=== PATIENT | female | born 1985 | race Caucasian/White ===

== ENCOUNTER → 2018-02-26 15:21 | Outpatient (CLI) | payer OTHER, SELFPAY ==
[2018-02-26 16:00] LABS: Basophils % 0.3 % (0.1-2.0); Eosinophils # 0.4 K/mm3 (0.0-0.4); Eosinophils % 3.5 % (0.1-12.0); Hematocrit 42.2 % (37.0-47.0); Hemoglobin 13.7 g/dL (12.2-16.2); Lymphocytes # 3.2 K/mm3 (0.7-4.5); Lymphocytes % 25.4 K/mm3 (10-50); Mean Corpuscular HGB Conc 32.4 g/dL (31.8-35.4); Mean Corpuscular Hemoglobin 28.3 pg (27.0-31.2); Mean Corpuscular Volume 87.3 fl (81-99); Mean Platelet Volume 9.5 fl (7.4-10.4); Monocytes # 0.3 K/mm3 (0.1-1.0); Monocytes % 2.6 % (1.7-9.3); Neutrophils # 8.6 K/mm3 (1.8-7.8); Neutrophils % 68.2 % (37.0-80.0); Platelet Count 218 K/mm3 (142-424); Red Blood Count 4.83 M/mm3 (4.20-5.40); White Blood Count 12.5 K/mm3 (4.8-10.8)
[2018-02-26 17:24] LABS: Alanine Aminotransferase 23 U/L (12-78); Albumin Level 3.6 gm/dL (3.4-5.0); Albumin/Globulin Ratio 0.9 (1.1-1.8); Alkaline Phosphatase 77 U/L (46-116); Aspartate Amino Transferase 15 U/L (15-37); Bilirubin,Total 0.2 mg/dL (0.2-1.0); Blood Urea Nitrogen 6 mg/dL (7-18); Calcium 9.1 mg/dL (8.5-10.1); Carbon Dioxide 27 mmol/L (21.0-32.0); Chloride 105 mmol/L (98-107); Creatinine,Serum 0.65 mg/dL (0.55-1.02); Estimated Glomerular Filt Rate 105 ml/min (>60); Free Thyroxine Index 2.7 ug/dL (5.93-13.13); GFR (African American) 127 ML/MIN (>60); Globulin 3.9 gm/dl (1.3-3.2); Glucose 94 mg/dL (74-106); Sodium 140 mmol/L (136-145); T4 (Thyroxine) 8.6 ug/dl (4.7-13.3); Thyroid Stimulating Hormone 1.59 uIU/ml (0.358-3.740); Total Protein,Serum 7.5 gm/dL (6.4-8.2); Triiodothryronine (T3) Uptake 31 % (31-39)
[2018-02-28 13:01] LABS: Prolactin 17.9 ng/mL (4.8-23.3); Triiodothyronine (T3) Free 3.3 pg/mL (2.0-4.4)
== END ==
PROVIDERS: Family Provider Nurse Practitioner Family; PCP Physician Assistant; Visit Provider Nurse Practitioner Obstetrics & Gynecology
DX: N92.0 Excessive and frequent menstruation with regular cycle (principal); N92.6 Irregular menstruation, unspecified
CPT/HCPCS: 36415; 80053; 84146; 84436; 84443; 84479; 84481; 85025

== ENCOUNTER → 2018-03-04 08:58 | Outpatient (CLI) | payer OTHER, SELFPAY ==
--- NOTE | 2018-03-04 09:02 | US_ITS ---
US transvaginal HISTORY: ITS.REASON: Heavy Bleeding, irregular cycles, right-sided pain ORDERING PHYSICIAN: Barrie Darling MD PATIENT AGE: 32 years Comparison: None FINDINGS: The uterus measures 9 x 5 x 7 cm with a combined endometrial thickness of 9 mm. scar noted anteriorly and inferiorly. No uterine mass. The left ovary is 2.5 x 2.4 cm. The right ovary is 3.5 x 3.6 cm contains small follicles. No dominant cyst or cul-de-sac fluid is evident. IMPRESSION: Unremarkable pelvic ultrasound
== END ==
PROVIDERS: Family Provider Nurse Practitioner Family; PCP Physician Assistant; Visit Provider Nurse Practitioner Obstetrics & Gynecology
DX: N93.9 Abnormal uterine and vaginal bleeding, unspecified (principal)
CPT/HCPCS: 76830

== ENCOUNTER 2018-06-03 14:32 | Inpatient (IN) ==
[2018-06-03 15:23] LABS: Basophils % 0.3 % (0.1-2.0); Eosinophils # 0.4 K/mm3 (0.0-0.4); Eosinophils % 3.2 % (0.1-12.0); Hematocrit 44.3 % (37.0-47.0); Hemoglobin 14.4 g/dL (12.2-16.2); Lymphocytes % 25.6 K/mm3 (10-50); Mean Corpuscular HGB Conc 32.5 g/dL (31.8-35.4); Mean Corpuscular Hemoglobin 28.2 pg (27.0-31.2); Mean Corpuscular Volume 86.6 fl (81-99); Mean Platelet Volume 9.3 fl (7.4-10.4); Monocytes # 0.5 K/mm3 (0.1-1.0); Monocytes % 3.8 % (1.7-9.3); Neutrophils # 7.9 K/mm3 (1.8-7.8); Neutrophils % 67.1 % (37.0-80.0); Platelet Count 219 K/mm3 (142-424); Red Blood Count 5.11 M/mm3 (4.20-5.40); Red Cell Distribution Width 15.3 % (11.5-17.5); White Blood Count 11.8 K/mm3 (4.8-10.8)
--- NOTE | 2018-06-03 15:26 | Emergency Department Note ---
ED Disposition Clinical Impression: Abdominal wall cellulitis, Hx MRSA infection Disposition: Home, Self-Care Condition on Discharge: Fair Referrals: Roberta Rocha PA [Primary Care Provider] - - Critical Care Critical Care Time: No Attestation: On 06/03/18, the high probability of a clinically significant, sudden or life threatening deterioration of the following system(s) required my full and direct attention, intervention and personal management. The time I documented below is in addition to time spent performing reported procedures but includes the following listed in this critical care notation. Medical Decision Making - Aurelio Inquiry Pt receiving controlled substance: No Aurelio was queried for this patient: No Vital Signs: 06/03/18 14:33 06/03/18 14:37 06/03/18 15:03 Temperature 98.7 F Temperature Source Oral Pulse Rate [Right Brachial] 102 H 104 H 101 H Respiratory Rate 20 Blood Pressure [Right Arm] 140/82 143/89 138/82 Blood Pressure Mean [Right Arm] 101 107 100 Blood Pressure Source [Right Arm] Manual Cuff/ Doppler Automatic Cuff Automatic Cuff Blood Pressure Position [Right Arm] Sitting Sitting Sitting 02 Sat by Pulse Oximetry 98 99 99 Oxygen Delivery Method Room Air 06/03/18 15:33 06/03/18 16:20 Temperature Temperature Source Pulse Rate [Right Brachial] 103 H 96 H Respiratory Rate Blood Pressure [Right Arm] 139/78 130/69 Blood Pressure Mean [Right Arm] 98 89 Blood Pressure Source [Right Arm] Automatic Cuff Manual Cuff/ Doppler Blood Pressure Position [Right Arm] Sitting Sitting 02 Sat by Pulse Oximetry 97 98 Oxygen Delivery Method - Lab Data Lab Results 06/03/18 15:06: WBC 11.8 H, RBC 5.11, Hgb 14.4, Hct 44.3, MCV 86.6, MCH 28.2, MCHC 32.5, RDW 15.3, Plt Count 219, MPV 9.3, Neut % (Auto) 67.1, Lymph % (Auto) 25.6, [place] % (Auto) 3.8, Eos % (Auto) 3.2, Baso % (Auto) 0.3, Neut # (Auto) 7.9 H, Lymph # (Auto) 3.0, [place] # (Auto) 0.5, Eos # (Auto) 0.4, Baso # (Auto) 0.0 06/03/18 15:06: Sodium 138, Potassium 3.6, Chloride 103, Carbon Dioxide 28, Anion Gap 10.6, BUN 9, Creatinine 0.92, Estimated Creat Clear 66, Estimated GFR 70, Est GFR ( Amer) 85, Glucose 115 H, Calcium 8.6 06/03/18 15:06: Lactate 0.9 Result diagrams: 06/03/18 15:06 06/03/18 15:06 Orders (Tests/Meds): ED MEDICATIONS Generic Name Dose Route Start Last Admin Trade Name Freq PRN Reason Stop Dose Admin Sodium Chloride 1,000 mls @ 999 mls/hr 06/03/18 15:30 06/03/18 15:36 Sod Chlor 0.9% 1000ml Bag IV 06/03/18 16:30 999 mls/hr .Q1H1M JAMES Administration Clindamycin Phosphate 900 mg/ 106 mls @ 100 mls/hr 06/03/18 15:30 06/03/18 15 :36 Sodium Chloride IV 06/17/18 15:29 100 mls/hr Q8H JAMES Administration Protocol Discontinued Medications Generic Name Dose Route Start Last Admin Trade Name Freq PRN Reason Stop Dose Admin Ketorolac Tromethamine 30 mg 06/03/18 15:21 06/03/18 15:36 Toradol 30mg/Ml Vial IV 06/03/18 15:22 30 mg ONCE ONE Administration ORDERS Category Date Time Status Blood Culture Stat Micro 06/03/18 15:06 Received Wound Culture and Gram Stain Stat Micro 06/03/18 15:25 Received Medical Decision Narrative: Patient was given Toradol started her on IV clindamycin. [address] Figu[address]a [phone] Dr[address] Kapoor accepted the patient for admission requested that the patient start vancomycin. Skin/Abscess/FB HPI - General Chief complaint: Skin/Abscess/Foreign Body Stated complaint: spider bite Time Seen by Provider: 06/03/18 15:00 Mode of Arrival: Family Vehicle Limitations: No Limitations Description of Symptoms (Recalled from ER Triage Doc. by RN): C/O SPIDER BITE ( SMALL BROWN SPIDER) TO RIGHT SIDE OF ABDOMEN 05/26/18 AND GETTING WORSE. HAS APPT WITH DR FIGUEROA ON 06/06/18 - History of Present Illness HPI narrative: 32 years old white female with history of MRSA infection. 8 days ago she was bitten by spider with a result of skin infection, she was seen by her primary care physician started on Bactrim and later on added Cipro with no improvement. Continues to have chills pain and worsening of her cellulitis. She contacted her primary care physician who directed her to the ER for admission and surgical consultation. MD complaint: rash Onset (ago): day(s) (8 days.) Tetanus up to date: unsure Severity: mild Severity scale (1-10): 8 Quality: sharp Consistency: constant Relieving factors: none Exacerbating factors: other (squeezing it. ) Context: none Associated symptoms: denies other symptoms, chills, other (skin rash. ) Treatments prior to arrival: none - Related Data Home Medications Medication Instructions Recorded Confirmed Acetaminophen with Codeine 1 tab PO Q6H PRN 06/03/18 06/03/18 [Tylenol with Codeine #3 tablet] Ciprofloxacin HCl [Ciprofloxacin 500 mg PO BID 06/03/18 06/03/18 500mg Tab] Mupirocin [Centany] 1 applic TOPICAL BID 06/03/18 06/03/18 Sulfamethoxazole/Trimethoprim 1 each PO BID 06/03/18 06/03/18 [Bactrim DS tablet] predniSONE [Deltasone 20mg 20 mg PO BID 06/03/18 06/03/18 tablet] Allergies Allergy/AdvReac Type Severity Reaction Status Date / Time amoxicillin [From AUGMENTIN] Allergy Mild Verified 05/30/18 14:30 ceftriaxone [From Rocephin] Allergy Mild Verified 05/30/18 15:43 clavulanic acid Allergy Mild Verified 05/30/18 14:30 [From AUGMENTIN] tramadol [TRAMADOL] Allergy Mild Verified 05/30/18 14:30 [facility] History I have reviewed the patient's past medical history: Yes Medical History: Reports:: Asthma, Migraine, MRSA Denies:: Cancer, Diabetes Mellitus Type 1, Diabetes Mellitus Type 2, Internal Pacemaker, Seizures Other Medical History: Reports: Other. Denies: Blood Transfusion Reaction Other Surgeries: Yes: . No: Pacemaker Amputation: No Fractures: No - Social History Smoking Status: Current every day smoker Tobacco Type: cigarettes Alcohol Intake: never Substance Use Type: denies use Occupational Status: employed Household Members: family - Psychiatric History Expresses thoughts of harming self/others: None Suicide Plan Description: No Plan Family Hx:: Diabetes, Cancer, Hypertension Comment: arthritis ROS Obtained: Yes All systems reviewed & no additional complaints Physical Exam - General General appearance: alert, in no apparent distress - Head Head exam: atraumatic, normocephalic, normal inspection - Eye Eye exam: Present: normal appearance, PERRL, EOMI - ENT ENT exam: Present: normal exam, normal oropharynx, mucous membranes moist, TM's normal bilaterally, normal external ear exam - Neck Neck exam: Present: normal inspection, full ROM, trachea midline. Absent: meningismus, lymphadenopathy - Chest Chest inspection: Present: normal inspection, symmetric chest wall rise. Absent : tenderness - Respiratory Respiratory exam: Present: normal lung sounds bilaterally. Absent: respiratory distress - Cardiovascular Cardiovascular exam: Present: regular rate, normal rhythm, normal heart sounds. Absent: JVD - Abdominal Exam Abdominal exam: Present: soft, tenderness, normal bowel sounds, other. Absent: distention, guarding, rebound, rigidity, Garcia's sign, tenderness at McBurney' s Point Comment: Obese soft abdomen inch black boil with a dusky reddish discharge from the center surrounded by 5 inches of erythema on the right side of the abdomen. There is no tenderness to deep palpation there is no focal tenderness no cross tenderness no rebound tenderness no guarding no rigidity. There is no inguinal lymph nodes palpated. - External exam: Present: normal external exam - Extremities Exam Extremities exam: Present: normal inspection, full ROM, normal capillary refill. Absent: calf tenderness - Back Exam Back exam: Present: normal inspection. Absent: tenderness, CVA tenderness (R), CVA tenderness (L) - Neurological Exam Neurological exam: Present: alert, oriented X3, CN II-XII intact, motor sensory deficit, reflexes normal - Psychiatric Psychiatric exam: Present: normal affect, normal mood - Skin Skin exam: Present: other (See abdominal examination. ) - Lymphatic Lymphatic Findings: no adenopathy
[2018-06-03 15:34] LABS: Anion Gap 10.6 mEq/L (5-15); Calcium 8.6 mg/dL (8.5-10.1); Potassium 3.6 mmoL/L (3.5-5.1)
--- NOTE | 2018-06-03 19:20 | Consult Report ---
*Admission Date: 06/03/18 *Chief complaint: BOIL ON ABDOMEN *History of present illness: Patient is a 32-year-old diabetic female from [place]. She states that she has had numerous boils in the past and she has been "put to sleep" for incision and drainage approximately 10 times in the past for these. She states that last Saturday on 05/26/18 she was bitten by a spider on the right lower abdomen. She states that she witnessed the spider. She had presented to her primary care provider's office several days later due to increasing pain and redness. She was given steroids and antibiotic prescription. Apparently the patient did not fill the prescription. She presented back to the urgent treatment center on 06/01/18. She was given a prescription for antibiotics and arrangements were made for outpatient surgical evaluation. She presented back to the emergency department this afternoon after contacting her primary care provider's office due to increasing pain and progressive redness. She had developed some drainage yesterday. She was admitted for inpatient management for intravenous antibiotics and surgical consultation for incision and drainage. Review of Systems - Review of Systems Review of systems:: pertinent systems reviewed and negative unless documented below [facility] History Medical History: Reports:: Asthma, Migraine, MRSA Denies:: Cancer, Diabetes Mellitus Type 1, Diabetes Mellitus Type 2, Internal Pacemaker, Seizures Other Medical History: Reports: Other. Denies: Blood Transfusion Reaction Other Surgeries: Yes: Cholecystectomy, . No: Pacemaker Amputation: No Fractures: No - *Social History Smoking Status: Current every day smoker Tobacco Type: cigarettes # Packs/Day (cigarettes): 1 Alcohol Intake: never Substance Use Type: denies use Occupational Status: employed Household Members: family - Psychiatric History Expresses thoughts of harming self/others: None Suicide Plan Description: No Plan *Family Hx:: Diabetes, Cancer, Hypertension Meds Home Medications Medication Instructions Recorded Confirmed Type Acetaminophen with Codeine 1 tab PO Q6H PRN 06/03/18 06/03/18 History [Tylenol with Codeine #3 tablet] Ciprofloxacin HCl [Ciprofloxacin 500 mg PO BID 06/03/18 06/03/18 History 500mg Tab] Mupirocin [Centany] 1 applic TOPICAL BID 06/03/18 06/03/18 History Sulfamethoxazole/Trimethoprim 1 each PO BID 08/21/18 08/21/18 History [Bactrim DS tablet] predniSONE [Deltasone 20mg 20 mg PO BID 06/03/18 06/03/18 History tablet] Allergies Allergy/AdvReac Type Severity Reaction Status Date / Time amoxicillin [From AUGMENTIN] Allergy Mild Verified 06/03/18 17:37 ceftriaxone [From Rocephin] Allergy Mild Verified 06/03/18 17:37 clavulanic acid Allergy Mild Verified 06/03/18 17:37 [From AUGMENTIN] tramadol [TRAMADOL] Allergy Mild Verified 06/03/18 17:37 Exam Vital signs and Labs for Last 24 Hours: Temp Pulse Resp BP Pulse Ox 97.4 F L 83 18 109/74 100 06/03/18 18:06 06/03/18 18:06 06/03/18 18:06 06/03/18 18:06 06/03/18 18:06 Laboratory Results - last 24 hr 06/03/18 15:06: WBC 11.8 H, RBC 5.11, Hgb 14.4, Hct 44.3, MCV 86.6, MCH 28.2, MCHC 32.5, RDW 15.3, Plt Count 219, MPV 9.3, Neut % (Auto) 67.1, Lymph % (Auto) 25.6, [place] % (Auto) 3.8, Eos % (Auto) 3.2, Baso % (Auto) 0.3, Neut # (Auto) 7.9 H, Lymph # (Auto) 3.0, [place] # (Auto) 0.5, Eos # (Auto) 0.4, Baso # (Auto) 0.0 06/03/18 15:06: Sodium 138, Potassium 3.6, Chloride 103, Carbon Dioxide 28, Anion Gap 10.6, BUN 9, Creatinine 0.92, Estimated Creat Clear 66, Estimated GFR 70, Est GFR ( Amer) 85, Glucose 115 H, Calcium 8.6 06/03/18 15:06: Lactate 0.9 I & O for Last 24 hours: Intake & Output 06/01/18 06/02/18 06/03/18 06/04/18 11:59 11:59 11:59 11:59 Weight 255 lb 2 oz Microbiology Reports for the Last 24 Hours: Microbiology 06/03/18 15:25 Abdomen Gram Stain - Final - Constitutional no acute distress, obese - *Routine HEENT Exam Head: Present: normocephalic - *Routine Respiratory Exam Present: CTA bilaterally - *Routine Cardiovascular Exam Present: RRR - *Routine Abdominal Exam Present: soft - *Routine Skin Exam Comments: On the right lower abdomen she has blanching erythema consistent with cellulitis. More centrally there is an and tenderness. Central platelets there is approximately a 3-4 area of fluctuance with some necrosis and purulent foul-smelling drainage. Results - Labs 06/03/18 15:06 06/03/18 15:06 Laboratory Results - last 24 hr 06/03/18 15:06: WBC 11.8 H, RBC 5.11, Hgb 14.4, Hct 44.3, MCV 86.6, MCH 28.2, MCHC 32.5, RDW 15.3, Plt Count 219, MPV 9.3, Neut % (Auto) 67.1, Lymph % (Auto) 25.6, [place] % (Auto) 3.8, Eos % (Auto) 3.2, Baso % (Auto) 0.3, Neut # (Auto) 7.9 H, Lymph # (Auto) 3.0, [place] # (Auto) 0.5, Eos # (Auto) 0.4, Baso # (Auto) 0.0 06/03/18 15:06: Sodium 138, Potassium 3.6, Chloride 103, Carbon Dioxide 28, Anion Gap 10.6, BUN 9, Creatinine 0.92, Estimated Creat Clear 66, Estimated GFR 70, Est GFR ( Amer) 85, Glucose 115 H, Calcium 8.6 06/03/18 15:06: Lactate 0.9 Assessment and Plan - Assessment and plan all Dx Assessment and Plan for all problems:: Plan will be for incision and drainage and debridement of necrotic tissues tomorrow morning under anesthesia in the operating room
[2018-06-04 06:19] LABS: Basophils % 0.3 % (0.1-2.0); Eosinophils # 0.5 K/mm3 (0.0-0.4); Eosinophils % 5.3 % (0.1-12.0); Hematocrit 39.5 % (37.0-47.0); Lymphocytes # 3.9 K/mm3 (0.7-4.5); Lymphocytes % 41.4 K/mm3 (10-50); Mean Corpuscular HGB Conc 32.9 g/dL (31.8-35.4); Mean Corpuscular Hemoglobin 28.4 pg (27.0-31.2); Mean Corpuscular Volume 86.5 fl (81-99); Mean Platelet Volume 10.3 fl (7.4-10.4); Monocytes # 0.4 K/mm3 (0.1-1.0); Monocytes % 4.5 % (1.7-9.3); Neutrophils # 4.6 K/mm3 (1.8-7.8); Neutrophils % 48.5 % (37.0-80.0); Platelet Count 190 K/mm3 (142-424); Red Blood Count 4.56 M/mm3 (4.20-5.40); Red Cell Distribution Width 15.3 % (11.5-17.5); White Blood Count 9.5 K/mm3 (4.8-10.8)
[2018-06-04 06:47] LABS: Anion Gap 13.4 mEq/L (5-15)
[2018-06-04 07:01] LABS: Calcium 8.2 mg/dL (8.5-10.1); Potassium 4.4 mmoL/L (3.5-5.1)
--- NOTE | 2018-06-04 07:19 | Pharmacy Consult Notes ---
[facility] Pharmacy VTE Monitoring - Patient Demographics Admission date: 06/04/18 Report Date: 06/04/18 Time: 07:19 Allergies/Adverse Reactions: Patient Allergies amoxicillin [From AUGMENTIN] Allergy (Mild, Verified 06/03/18 17:37) ceftriaxone [From Rocephin] Allergy (Mild, Verified 06/03/18 17:37) clavulanic acid [From AUGMENTIN] Allergy (Mild, Verified 06/03/18 17:37) tramadol [TRAMADOL] Allergy (Mild, Verified 06/03/18 17:37) Height: 1.63 m Weight: 115.723 kg Patient Problems: Current Active Problems Abdominal wall cellulitis (Acute) Hx MRSA infection (Acute) - VTE Risk Labs: VTE Related Lab Results Hgb 13.0 g/dL (12.2-16.2) 06/04/18 05:35 Hct 39.5 % (37.0-47.0) 06/04/18 05:35 Plt Count 190 K/mm3 (142-424) 06/04/18 05:35 BUN 10 mg/dL (7-18) 06/04/18 05:35 Creatinine 0.78 mg/dL (0.55-1.02) 06/04/18 05:35 Estimated Creat Clear 89 mL/min (0-300) 06/04/18 05:35 Clinical Trial Participant: No - Prophylaxis VTE Prophylaxis Ordered?: Yes Types of VTE Prophylaxis: TEDS Knee High Location of Applied Device: Refused
--- NOTE | 2018-06-04 08:35 | History & Physical Report ---
*Admission Date: 06/04/18 *History of present illness: Patient is a 32-year-old diabetic female from [place]. She states that she has had numerous boils in the past and she has been "put to sleep" for incision and drainage approximately 10 times in the past for these. She states that last Saturday on 05/26/18 she was bitten by a spider on the right lower abdomen. She states that she witnessed the spider. She had presented to her primary care provider's office several days later due to increasing pain and redness. She was given steroids and antibiotic prescription. Apparently the patient did not fill the prescription. She presented back to the urgent treatment center on 06/01/18. She was given a prescription for antibiotics and arrangements were made for outpatient surgical evaluation. She presented back to the emergency department this afternoon after contacting her primary care provider's office due to increasing pain and progressive redness. She had developed some drainage yesterday. She was admitted for inpatient management for intravenous antibiotics and surgical consultation for incision and drainage. [facility] History I have reviewed the patient's past medical history: Yes Medical History: Reports:: Asthma, Migraine, MRSA Denies:: Cancer, Diabetes Mellitus Type 1, Diabetes Mellitus Type 2, Internal Pacemaker, Seizures Other Medical History: Reports: Other. Denies: Blood Transfusion Reaction Other Surgeries: Yes: Cholecystectomy, . No: Pacemaker Amputation: No Fractures: No - *Social History Smoking Status: Current every day smoker Tobacco Type: cigarettes # Packs/Day (cigarettes): 1 Alcohol Intake: never Substance Use Type: denies use Occupational Status: employed Household Members: family - Psychiatric History Expresses thoughts of harming self/others: None Suicide Plan Description: No Plan *Family Hx:: Diabetes, Cancer, Hypertension Review of Systems - Review of Systems Review of systems:: pertinent systems reviewed and negative unless documented below - Constitutional Reports chills, Reports fever(s) - Eyes Denies change in vision - ENT Denies change in voice, Denies sore throat - *Cardiovascular Denies chest pain with activity, Denies shortness of breath - *Respiratory Denies chest congestion - *Gastrointestinal Denies change in bowel habits, Denies nausea, Denies vomiting - *Genitourinary Denies other - *Musculoskeletal Denies decreased muscle mass - Integumentary/Breasts Reports wounds - *Neurologic Denies abnormal hearing, Denies restless legs - Psychiatric Denies anxiety - Endocrine Denies flushing - Hematologic/Lymphatic Denies enlarged lymph nodes - Allergic/Immunologic Denies lip swelling Meds Home Medications Medication Instructions Recorded Confirmed Type Acetaminophen with Codeine 1 tab PO Q6H PRN 06/03/18 06/03/18 History [Tylenol with Codeine #3 tablet] Ciprofloxacin HCl [Ciprofloxacin 500 mg PO BID 06/03/18 06/03/18 History 500mg Tab] Mupirocin [Centany] 1 applic TOPICAL BID 06/03/18 06/03/18 History Sulfamethoxazole/Trimethoprim 1 each PO BID 06/03/18 06/03/18 History [Bactrim DS tablet] Allergies Allergy/AdvReac Type Severity Reaction Status Date / Time amoxicillin [From AUGMENTIN] Allergy Mild Verified 06/03/18 17:37 ceftriaxone [From Rocephin] Allergy Mild Verified 06/03/18 17:37 clavulanic acid Allergy Mild Verified 06/03/18 17:37 [From AUGMENTIN] tramadol [TRAMADOL] Allergy Mild Verified 06/03/18 17:37 Exam Vital signs and Labs for Last 24 Hours: Temp Pulse Resp BP Pulse Ox 97.9 F 54 L 18 98/71 99 06/04/18 07:21 06/04/18 07:21 06/04/18 07:21 06/04/18 07:21 06/04/18 07:21 Laboratory Results - last 24 hr 06/03/18 15:06: WBC 11.8 H, RBC 5.11, Hgb 14.4, Hct 44.3, MCV 86.6, MCH 28.2, MCHC 32.5, RDW 15.3, Plt Count 219, MPV 9.3, Neut % (Auto) 67.1, Lymph % (Auto) 25.6, [place] % (Auto) 3.8, Eos % (Auto) 3.2, Baso % (Auto) 0.3, Neut # (Auto) 7.9 H, Lymph # (Auto) 3.0, [place] # (Auto) 0.5, Eos # (Auto) 0.4, Baso # (Auto) 0.0 06/03/18 15:06: Sodium 138, Potassium 3.6, Chloride 103, Carbon Dioxide 28, Anion Gap 10.6, BUN 9, Creatinine 0.92, Estimated Creat Clear 66, Estimated GFR 70, Est GFR ( Amer) 85, Glucose 115 H, Calcium 8.6 06/03/18 15:06: Lactate 0.9 06/04/18 05:35: WBC 9.5, RBC 4.56, Hgb 13.0, Hct 39.5, MCV 86.5, MCH 28.4, MCHC 32.9, RDW 15.3, Plt Count 190, MPV 10.3, Neut % (Auto) 48.5, Lymph % (Auto) 41.4 , [place] % (Auto) 4.5, Eos % (Auto) 5.3, Baso % (Auto) 0.3, Neut # (Auto) 4.6, Lymph # (Auto) 3.9, [place] # (Auto) 0.4, Eos # (Auto) 0.5 H, Baso # (Auto) 0.0 06/04/18 05:35: Sodium 138, Potassium 4.4 D, Chloride 107, Carbon Dioxide 22 D , Anion Gap 13.4, BUN 10, Creatinine 0.78, Estimated Creat Clear 89, Estimated GFR 85, Est GFR ( Amer) 103 D, Glucose 84 D, Calcium 8.2 L I & O for Last 24 hours: Intake & Output 06/01/18 06/02/18 06/03/18 06/04/18 11:59 11:59 11:59 11:59 Weight 255 lb 2 oz Microbiology Reports for the Last 24 Hours: Microbiology 06/03/18 15:25 Abdomen Gram Stain - Final - Constitutional no acute distress - *Routine HEENT Exam Head: Present: normocephalic Eye: Present: PERRL ENT: Present: mucous membranes moist - *Routine Neck Exam Present: full ROM - *Routine Respiratory Exam Present: CTA bilaterally - *Routine Cardiovascular Exam Present: RRR - *Routine Abdominal Exam Present: wound - *Routine Extremities Exam Present: full ROM - *Routine Skin Exam Present: wounds - *Routine Neurological Exam Present: alert, oriented X3 - Routine Psychiatric Exam Present: normal affect, normal thought process - Detailed Skin Exam right abdomen Type of lesion/wound: Present: abscess Body image: 1 - induration the size of golf ball, yellow/green pus present, redness the size of a solfball Assessment and Plan - Assessment and plan all Dx Assessment and Plan for all problems:: rounded with gonzález, all orders per gonzález surgery today.
--- NOTE | 2018-06-04 10:13 | Pharmacy Consult Notes ---
- Pharmacy Consult Date: 06/04/18 Time: 10:12 Referring provider: DR. RONDON Reason for Consult:: VANCOMYCIN DOSING Allergies and ADEs:: Allergies Allergy/AdvReac Type Severity Reaction Status Date / Time amoxicillin [From AUGMENTIN] Allergy Mild Verified 06/03/18 17:37 ceftriaxone [From Rocephin] Allergy Mild Verified 06/03/18 17:37 clavulanic acid Allergy Mild Verified 06/03/18 17:37 [From AUGMENTIN] tramadol [TRAMADOL] Allergy Mild Verified 06/03/18 17:37 Home Medications:: Home Medications Medication Instructions Recorded Confirmed Type Acetaminophen with Codeine 1 tab PO Q6H PRN 06/03/18 06/03/18 History [Tylenol with Codeine #3 tablet] Ciprofloxacin HCl [Ciprofloxacin 500 mg PO BID 06/03/18 06/03/18 History 500mg Tab] Mupirocin [Centany] 1 applic TOPICAL BID 06/03/18 06/03/18 History Sulfamethoxazole/Trimethoprim 1 each PO BID 06/03/18 06/03/18 History [Bactrim DS tablet] Height: 1.63 m Weight: 115.723 kg Laboratory Results:: Laboratory Results - last 24 hr 06/03/18 15:06: WBC 11.8 H, RBC 5.11, Hgb 14.4, Hct 44.3, MCV 86.6, MCH 28.2, MCHC 32.5, RDW 15.3, Plt Count 219, MPV 9.3, Neut % (Auto) 67.1, Lymph % (Auto) 25.6, [place] % (Auto) 3.8, Eos % (Auto) 3.2, Baso % (Auto) 0.3, Neut # (Auto) 7.9 H, Lymph # (Auto) 3.0, [place] # (Auto) 0.5, Eos # (Auto) 0.4, Baso # (Auto) 0.0 06/03/18 15:06: Sodium 138, Potassium 3.6, Chloride 103, Carbon Dioxide 28, Anion Gap 10.6, BUN 9, Creatinine 0.92, Estimated Creat Clear 66, Estimated GFR 70, Est GFR ( Amer) 85, Glucose 115 H, Calcium 8.6 06/03/18 15:06: Lactate 0.9 06/04/18 05:35: WBC 9.5, RBC 4.56, Hgb 13.0, Hct 39.5, MCV 86.5, MCH 28.4, MCHC 32.9, RDW 15.3, Plt Count 190, MPV 10.3, Neut % (Auto) 48.5, Lymph % (Auto) 41.4 , [place] % (Auto) 4.5, Eos % (Auto) 5.3, Baso % (Auto) 0.3, Neut # (Auto) 4.6, Lymph # (Auto) 3.9, [place] # (Auto) 0.4, Eos # (Auto) 0.5 H, Baso # (Auto) 0.0 06/04/18 05:35: Sodium 138, Potassium 4.4 D, Chloride 107, Carbon Dioxide 22 D , Anion Gap 13.4, BUN 10, Creatinine 0.78, Estimated Creat Clear 89, Estimated GFR 85, Est GFR ( Amer) 103 D, Glucose 84 D, Calcium 8.2 L Medical History: Reports:: Asthma, Migraine, MRSA Denies:: Cancer, Diabetes Mellitus Type 1, Diabetes Mellitus Type 2, Internal Pacemaker, Seizures Assessment and Plan - Assessment and plan all Dx Assessment and Plan for all problems:: BASED ON PATIENT FACTORS, RECOMMEND VANCOMYCIN 2 GM IV Q12H. WILL OBTAIN VANCOMYCIN TROUGH LEVEL PRIOR TO 4TH DOSE TOMORROW MORNING. PHARMACY WILL FOLLOW DAILY AND ADJUST APPROPRIATE.
--- NOTE | 2018-06-04 13:12 | Progress Note ---
[facility] Anesthesia Checklist - Patient Identification Patient Identification: Arm Band, Verbal (Name & ) - Structural Data Admitted From: Inpatient Planned Operative Procedure/s: I&D, debridement of abdominal wall Consent for Planned Operative Procedure(s) Verified: Yes Verified Documents: Surgical Consent, History and Physical - NPO Status Verified Time NPO: 00:00 - Additional verifications Patient : No Anesthesia Reactions: No - Airway Assessment C-Spine Mobility Assessed: Yes TMJ Mobility Assessed: Yes Dentition: Poor Dentition - Neurological Assessment Level of Consciousness: Awake Hx Seizures: No Numbness or tingling in extremities: No - Anesthesia Plan Anesthesia Risk discussed: Yes Anesthesia Plan: Verified ASA Class: III Anesthesia Type: General [facility] Anesthesia HX I have reviewed the patient's past medical history: Yes Medical History: Reports:: Asthma, Migraine, MRSA Denies:: Cancer, Diabetes Mellitus Type 1, Diabetes Mellitus Type 2, Internal Pacemaker, Seizures Other Medical History: Reports: Other (Morbid obesity, smokes tobacco). Denies : Blood Transfusion Reaction Other Surgeries: Yes: Cholecystectomy, , Other (abscess x10, uterine ablation). No: Pacemaker Amputation: No Fractures: No *Family Hx:: Diabetes, Cancer, Hypertension
--- NOTE | 2018-06-04 14:14 | Operative Note ---
Date of procedure: 06/04/18 Pre-op Diagnosis:: Abdominal wall abscess and focal necrotizing infection Post-op Diagnosis:: Same Procedure performed:: Incision and drainage of abdominal wall abscess with debridement of skin and subcutaneous tissues Surgeon:: Dada Garcia MD Anesthesia: LMA Estimated blood loss (mL): 15 Clinical Note:: Patient is a 32-year-old diabetic female from [place]. She states that she has had numerous boils in the past and she has been "put to sleep" for incision and drainage approximately 10 times in the past for these. She states that last Saturday on 05/26/18 she was bitten by a spider on the right lower abdomen. She states that she witnessed the spider. She had presented to her primary care provider's office several days later due to increasing pain and redness. She was given steroids and antibiotic prescription. Apparently the patient did not fill the prescription. She presented back to the urgent treatment center on 06/01/18. She was given a prescription for antibiotics and arrangements were made for outpatient surgical evaluation. She presented back to the emergency department this afternoon after contacting her primary care provider's office due to increasing pain and progressive redness. She had developed some drainage yesterday. She was admitted for inpatient management for intravenous antibiotics and surgical consultation for incision and drainage. Operative findings:: Had focal superficial necrosis of the skin with minimal infected subcutaneous tissue. There is purulent caseous is drainage from the wound. Operative note:: Consent was obtained and patient was taken to the operating room. She was positioned in a supine position. General anesthesia was induced via LMA. Area was prepped and draped in the standard surgical fashion. Open draining wound was probed with a hemostat. There was some caseous purulent material which exuded from the wound. This was sent for cultures. Wound was probed. The superficial necrotic tissues were incised using electrocautery in a circular fashion and underlying subcutaneous tissues were excised with electrocautery to relatively healthy appearing subcutaneous tissue. Wound was vigorously probed and there were no loculations noted. Wound was thoroughly irrigated. Hemostasis was achieved with electrocautery. Local anesthetic was infiltrated. Overall size of the wound measured only approximately 3 cm in diameter and 2/ 3 cm in depth. There was however extensive cellulitis beyond this. Condition: stable Disposition: PACU Specimens:: Debrided tissue Complications:: None immediately apparent
--- NOTE | 2018-06-04 14:23 | Progress Note ---
[facility] Anesthesia Record Part I Intake, IV Amount: 600 Estimated blood loss (mL): 10 Urine output (mL): 0 Blood Products used (#): none Blood Pressure: 120/75 SaO2: 99 Pulse Rate: 55 Respiratory Rate: 14 Temperature: 97.0 F Patient is:: Awake, Stable Stable to PACU at:: 14:15
--- NOTE | 2018-06-04 14:24 | Progress Note ---
[facility] Anesthesia Record Part II Discharge Time: 14:45 Destination: Medical Surgical Department PACU nurse assessment reviewed?: Yes Patient Condition:: Good Anesthesia Complications:: None
--- NOTE | 2018-06-05 08:23 | Progress Note ---
Subjective Patient reports: still having pain Exam Vital signs and Labs for Last 24 Hours: Temp Pulse Resp BP Pulse Ox 98.0 F 53 L 18 121/79 100 06/05/18 07:00 06/05/18 07:00 06/05/18 07:00 06/05/18 07:00 06/05/18 07:00 I & O for Last 24 hours: Intake & Output 06/02/18 06/03/18 06/04/18 06/05/18 11:59 11:59 11:59 11:59 Intake Total 3289 / 3289 Output Total 0 / 0 Balance 3289 / 3289 Weight 255 lb 2 oz 255 lb 2.008 oz Microbiology Reports for the Last 24 Hours: Microbiology 06/03/18 15:25 Abdomen Gram Stain - Final 06/03/18 15:25 Abdomen Wound Culture - Preliminary Staphylococcus aureus 06/04/18 Unknown Abdomen Gram Stain - Final - *Routine Skin Exam Comments: Still with significant cellulitis. Wound clean. Progress Note: A&P Assessment and Plan for All Diagnoses:: Initiate dressing changes. Continue IV antibiotics for now due to cellulitis. Culture reveals MRSA.
--- NOTE | 2018-06-05 09:02 | Progress Note ---
Internal Medicine - PN: Subj *Date: 06/05/18 *Time: 08:55 Exam Vital signs and Labs for Last 24 Hours: Temp Pulse Resp BP Pulse Ox 98.0 F 53 L 18 121/79 100 06/05/18 07:00 06/05/18 07:00 06/05/18 07:00 06/05/18 07:00 06/05/18 07:00 I & O for Last 24 hours: Intake & Output 06/02/18 06/03/18 06/04/18 06/05/18 11:59 11:59 11:59 11:59 Intake Total 3289 / 3289 Output Total 0 / 0 Balance 3289 / 3289 Weight 255 lb 2 oz 255 lb 2.008 oz Microbiology Reports for the Last 24 Hours: Microbiology 06/03/18 15:25 Abdomen Gram Stain - Final 06/03/18 15:25 Abdomen Wound Culture - Preliminary Staphylococcus aureus 06/04/18 Unknown Abdomen Gram Stain - Final - Constitutional no acute distress - *Routine HEENT Exam Head: Present: normocephalic Eye: Present: PERRL ENT: Present: mucous membranes moist - *Routine Neck Exam Present: full ROM - *Routine Respiratory Exam Present: CTA bilaterally - *Routine Cardiovascular Exam Present: RRR - *Routine Abdominal Exam Present: soft, normoactive bowel sounds, tenderness, wound - *Routine Extremities Exam Present: full ROM - Routine Back/Spine/Pelvis Exam Back/Spine: Present: full ROM - *Routine Skin Exam Present: wounds - *Routine Neurological Exam Present: alert, oriented X3, CN II-XII intact - Routine Psychiatric Exam Present: normal affect, normal thought process - Detailed Skin Exam generalized abdomen Type of lesion/wound: Present: abscess Body image: 1 - wound with clean edges, redness improved. Assessment and Plan - Assessment and plan all Dx Assessment and Plan for all problems:: rounded with gonzález, all orders per gonzález pt states her iv meds is hurting and she wants a picc or she will refuse iv meds at this time she is not a picc candidate if she continues to refuse iv meds we will dc home will try to obtain zyvox for positive MRSA.
--- NOTE | 2018-06-05 10:14 | Pharmacy Consult Notes ---
- Pharmacy Consult Date: 06/05/18 Time: 10:12 Referring provider: DR. RONDON Reason for Consult:: VANCOMYCIN TROUGH LEVEL Allergies and ADEs:: Allergies Allergy/AdvReac Type Severity Reaction Status Date / Time amoxicillin [From AUGMENTIN] Allergy Mild Verified 06/03/18 17:37 ceftriaxone [From Rocephin] Allergy Mild Verified 06/03/18 17:37 clavulanic acid Allergy Mild Verified 06/03/18 17:37 [From AUGMENTIN] tramadol [TRAMADOL] Allergy Mild Verified 06/03/18 17:37 Home Medications:: Home Medications Medication Instructions Recorded Confirmed Type Acetaminophen with Codeine 1 tab PO Q6H PRN 06/03/18 06/03/18 History [Tylenol with Codeine #3 tablet] Ciprofloxacin HCl [Ciprofloxacin 500 mg PO BID 06/03/18 06/03/18 History 500mg Tab] Mupirocin [Centany] 1 applic TOPICAL BID 06/03/18 06/03/18 History Sulfamethoxazole/Trimethoprim 1 each PO BID 06/03/18 06/03/18 History [Bactrim DS tablet] Height: 1.63 m Weight: 115.723 kg Laboratory Results:: Laboratory Results - last 24 hr 06/05/18 08:50: Vancomycin Trough 14.0 Medical History: Reports:: Asthma, Migraine, MRSA Denies:: Cancer, Diabetes Mellitus Type 1, Diabetes Mellitus Type 2, Internal Pacemaker, Seizures Assessment and Plan - Assessment and plan all Dx Assessment and Plan for all problems:: BASED ON PATIENT FACTORS AND VANCOMYCIN TROUGH LEVEL, RECOMMEND CONTINUING VANCOMYCIN 2 GM IV Q12H. PHARMACY WILL CONTINUE TO MONITOR DAILY AND ADJUST APPROPRIATE.
--- NOTE | 2018-06-06 11:56 | Discharge Summary ---
General - General Admission date:: 06/03/18 Discharge date: 06/06/18 HPI HPI: Patient is a 32-year-old diabetic female from [place]. She states that she has had numerous boils in the past and she has been "put to sleep" for incision and drainage approximately 10 times in the past for these. She states that last Saturday on 05/26/18 she was bitten by a spider on the right lower abdomen. She states that she witnessed the spider. She had presented to her primary care provider's office several days later due to increasing pain and redness. She was given steroids and antibiotic prescription. Apparently the patient did not fill the prescription. She presented back to the urgent treatment center on 06/01/18. She was given a prescription for antibiotics and arrangements were made for outpatient surgical evaluation. She presented back to the emergency department this afternoon after contacting her primary care provider's office due to increasing pain and progressive redness. She had developed some drainage yesterday. She was admitted for inpatient management for intravenous antibiotics and surgical consultation for incision and drainage. Hospital Course Hospital Course: pt did well with ivf and abx and was seen by surg with surgical i/d -atient is a 32-year-old diabetic female from [place]. She states that she has had numerous boils in the past and she has been "put to sleep" for incision and drainage approximately 10 times in the past for these. She states that last Saturday on 05/26/18 she was bitten by a spider on the right lower abdomen. She states that she witnessed the spider. She had presented to her primary care provider's office several days later due to increasing pain and redness. She was given steroids and antibiotic prescription. Apparently the patient did not fill the prescription. She presented back to the urgent treatment center on . She was given a prescription for antibiotics and arrangements were made for outpatient surgical evaluation. She presented back to the emergency department this afternoon after contacting her primary care provider's office due to increasing pain and progressive redness. She had developed some drainage yesterday. She was admitted for inpatient management for intravenous antibiotics and surgical consultation for incision and drainage. pt did well post-op and d/c on po abx and pain meds with pcp and surg follow up Objective Vital signs: Temp Pulse Resp BP Pulse Ox 97.9 F 54 L 18 118/75 99 06/06/18 07:45 06/06/18 07:45 06/06/18 07:45 06/06/18 07:45 06/06/18 07:45 no acute distress, obese - *Routine HEENT Exam Head: Present: atraumatic Eye: Present: EOMI, PERRL ENT: Present: mucous membranes dry - *Routine Neck Exam Present: supple. Absent: JVD - *Routine Respiratory Exam Present: CTA bilaterally - *Routine Cardiovascular Exam Present: RRR - *Routine Abdominal Exam Present: soft Comments: has packing - *Routine Extremities Exam Absent: calf tenderness - *Routine Skin Exam Comments: post op surg site with packing - *Routine Neurological Exam Present: alert, oriented X3, CN II-XII intact - Routine Psychiatric Exam Present: normal affect Results Labs on day of discharge: Preliminary micro results at discharge 06/03/18 15:06 Blood Culture - Preliminary Blood NO GROWTH AFTER 48 HOURS 06/03/18 15:06 Blood Culture - Preliminary Blood NO GROWTH AFTER 48 HOURS DS: Diagnosis - Discharge Diagnosis (1) MRSA cellulitis Status: Acute (2) Abdominal wall cellulitis Status: Acute (3) Overweight Status: Acute (4) Tobacco use Status: Acute Discharge Plan - Patient Discharge Instructions - Follow up Plan Home Medications: Home Medications Medication Instructions Recorded Confirmed Type Acetaminophen with Codeine 1 tab PO Q6H PRN 06/03/18 06/03/18 History [Tylenol with Codeine #3 tablet] Ciprofloxacin HCl [Ciprofloxacin 500 mg PO BID 06/03/18 06/03/18 History 500mg Tab] Mupirocin [Centany] 1 applic TOPICAL BID 06/03/18 06/03/18 History Sulfamethoxazole/Trimethoprim 1 each PO BID 06/03/18 06/03/18 History [Bactrim DS tablet] Prescriptions/Medication Reconciliation: No Action Mupirocin [Centany] 1 applic TOPICAL BID Sulfamethoxazole/Trimethoprim [Bactrim DS tablet] 1 each PO BID Ciprofloxacin HCl [Ciprofloxacin 500mg Tab] 500 mg PO BID Acetaminophen with Codeine [Tylenol with Codeine #3 tablet] 1 tab PO Q6H PRN PRN Reason: PAIN
== END 2018-06-06 12:55 | disposition home or self-care (01) ==
LOC: 2ND 14:32 → ER 14:32 → OBSVTOIN 17:27 → 2ND 17:28
PROVIDERS: ADMIT Emergency Medicine; ATTEND Emergency Medicine

== ENCOUNTER → 2018-06-07 15:46 | Outpatient (CLI) | payer OTHER, SELFPAY ==
[2018-06-07 16:32] VITALS: BP 135/82; PULSE 84; RESP 18; TEMP 36.8; O2SAT 98
== END ==
PROVIDERS: Family Provider Nurse Practitioner Family; PCP Physician Assistant; Visit Provider Surgery
DX: L03.90 Cellulitis, unspecified (principal); B95.62 Methicillin resistant Staphylococcus aureus infection as the cause of diseases classified elsewhere
CPT/HCPCS: G0463

== ENCOUNTER → 2018-06-08 12:57 | Outpatient (CLI) | payer OTHER, SELFPAY ==
[2018-06-08 13:15] VITALS: BP 153/87; PULSE 75; RESP 18; TEMP 36.8; O2SAT 100
[2018-06-08 13:33] VITALS: BP 150/78; PULSE 75; RESP 18; TEMP 36.8; O2SAT 100
== END ==
PROVIDERS: Family Provider Nurse Practitioner Family; PCP Physician Assistant; Visit Provider Surgery
DX: L03.90 Cellulitis, unspecified (principal); B95.62 Methicillin resistant Staphylococcus aureus infection as the cause of diseases classified elsewhere
CPT/HCPCS: G0463

== ENCOUNTER 2018-06-09 12:40 | Outpatient (CLI) | payer OTHER, SELFPAY ==
[2018-06-09 17:14] VITALS: BP 132/74; PULSE 68; RESP 20; TEMP 36.9; O2SAT 96
== END 2018-06-09 13:15 | disposition home or self-care (01) ==
LOC: INF 12:54
PROVIDERS: Family Provider Nurse Practitioner Family; PCP Physician Assistant; Visit Provider Surgery
DX: L03.90 Cellulitis, unspecified (principal); B95.62 Methicillin resistant Staphylococcus aureus infection as the cause of diseases classified elsewhere
CPT/HCPCS: G0463

== ENCOUNTER 2018-06-10 15:36 | Outpatient (CLI) | payer OTHER, SELFPAY | END 2018-06-10 15:55 | disposition home or self-care (01) | LOC: INF 15:36 | PROVIDERS: Family Provider Nurse Practitioner Family; PCP Physician Assistant; Visit Provider Surgery | DX: Z48.00 Encounter for change or removal of nonsurgical wound dressing (principal); T63.301A Toxic effect of unspecified spider venom, accidental (unintentional), initial encounter; L03.90 Cellulitis, unspecified; B95.62 Methicillin resistant Staphylococcus aureus infection as the cause of diseases classified elsewhere | CPT/HCPCS: G0463 ==

== ENCOUNTER 2018-06-11 10:40 | Outpatient (CLI) | payer OTHER, SELFPAY | END 2018-06-11 11:25 | disposition home or self-care (01) | LOC: INF 10:48 | PROVIDERS: Family Provider Nurse Practitioner Family; PCP Physician Assistant; Visit Provider Surgery | DX: Z48.00 Encounter for change or removal of nonsurgical wound dressing (principal); T63.301A Toxic effect of unspecified spider venom, accidental (unintentional), initial encounter; L03.90 Cellulitis, unspecified; B95.62 Methicillin resistant Staphylococcus aureus infection as the cause of diseases classified elsewhere | CPT/HCPCS: G0463 ==

== ENCOUNTER → 2018-06-18 14:06 | Outpatient (CLI) | payer OTHER, SELFPAY | PROVIDERS: Visit Provider Physician Assistant | DX: T63.301A Toxic effect of unspecified spider venom, accidental (unintentional), initial encounter (principal) | CPT/HCPCS: 87070; 87077; 87186; 87205 ==

== ENCOUNTER 2018-06-19 08:55 | Outpatient (CLI) | payer OTHER, SELFPAY ==
--- NOTE | 2018-06-19 12:19 | PC.NURSE ---
06/[id number] changed today. pt has not shown for daily visits for the last 5 days. pt reports that her boyfriend has been doing the dressing changes for her at home, and that she has had no transportation to get back to the hospital to have dressing changes done. pt reports having seen her pcp-april asher aprn-yesterday and that she assessed the wound and performed the dressing change and was concerned about her wound drainage color being yellowish green and recultured the wound. pt still taking po zyvox. During drsg change today, wound drainage noted bright yellowish green. wound noted very moist. Explained to pt the the wound may be too moist with the use of saline and that this may be contributing to the change in drainage color. gauze used for packing the wound today made barely moist and covered with dry sterile drsg. secured with tegaderm per md/pt request as the medipore tape was too irritating to the surrounding skin.
== END 2018-06-19 09:45 | disposition home or self-care (01) ==
LOC: INF 09:26
PROVIDERS: Family Provider Nurse Practitioner Family; Visit Provider Surgery
DX: L03.311 Cellulitis of abdominal wall (principal); Z48.00 Encounter for change or removal of nonsurgical wound dressing
CPT/HCPCS: G0463

== ENCOUNTER 2018-06-20 08:30 | Outpatient (CLI) | payer OTHER, SELFPAY ==
[2018-06-20 09:20] VITALS: BP 130/70; BP 138/102; PULSE 66; RESP 20; TEMP 36.9; O2SAT 96
--- NOTE | 2018-06-20 13:33 | PC.NURSE ---
PT IS HERE FOR DRESSING CHANGE; OLD DRESSING REMOVED; PACKED WOUND WITH GAUZE; COVERED WITH DRY GAUZE AND TEGADERM PER MD ORDERS
== END 2018-06-20 09:15 | disposition home or self-care (01) ==
PROVIDERS: Family Provider Nurse Practitioner Family; Visit Provider Surgery
DX: T63.301A Toxic effect of unspecified spider venom, accidental (unintentional), initial encounter (principal); A49.02 Methicillin resistant Staphylococcus aureus infection, unspecified site; L03.311 Cellulitis of abdominal wall
CPT/HCPCS: G0463

== ENCOUNTER 2018-06-21 09:54 | Outpatient (CLI) | payer OTHER, SELFPAY ==
[2018-06-21 10:27] VITALS: BP 136/87; PULSE 88; RESP 18; TEMP 36.8; O2SAT 98; BMI 40.8
[2018-06-21 10:35] VITALS: RESP 18
[2018-06-21 10:47] VITALS: BP 136/87; PULSE 88; RESP 18; TEMP 36.8; O2SAT 98
== END 2018-06-21 10:49 | disposition home or self-care (01) ==
LOC: INF 09:55
PROVIDERS: Family Provider Nurse Practitioner Family; Visit Provider Surgery
DX: Z48.00 Encounter for change or removal of nonsurgical wound dressing (principal); T63.301A Toxic effect of unspecified spider venom, accidental (unintentional), initial encounter; L03.311 Cellulitis of abdominal wall
CPT/HCPCS: G0463

== ENCOUNTER → 2018-06-22 12:02 | Outpatient (CLI) | payer OTHER, SELFPAY ==
[2018-06-22 12:18] VITALS: BP 127/84; PULSE 84; RESP 18; TEMP 37.3; O2SAT 100; BMI 40.8
[2018-06-22 13:02] VITALS: BP 127/85; PULSE 85; RESP 18; TEMP 37.3; O2SAT 98
== END ==
PROVIDERS: Family Provider Nurse Practitioner Family; Visit Provider Surgery
DX: Z48.01 Encounter for change or removal of surgical wound dressing (principal); T63.301A Toxic effect of unspecified spider venom, accidental (unintentional), initial encounter; L03.311 Cellulitis of abdominal wall
CPT/HCPCS: G0463

== ENCOUNTER 2018-06-23 09:00 | Outpatient (CLI) | payer OTHER, SELFPAY | END 2018-06-23 09:55 | disposition home or self-care (01) | LOC: INF 09:12 | PROVIDERS: Family Provider Nurse Practitioner Family; Visit Provider Surgery | DX: T63.301A Toxic effect of unspecified spider venom, accidental (unintentional), initial encounter (principal); L03.311 Cellulitis of abdominal wall | CPT/HCPCS: G0463 ==

== ENCOUNTER 2018-06-24 09:00 | Outpatient (CLI) | payer OTHER, SELFPAY | END 2018-06-24 09:40 | disposition home or self-care (01) | LOC: INF 09:33 | PROVIDERS: PCP Emergency Medicine; Visit Provider Surgery | DX: Z48.01 Encounter for change or removal of surgical wound dressing (principal); T63.301A Toxic effect of unspecified spider venom, accidental (unintentional), initial encounter; L03.311 Cellulitis of abdominal wall | CPT/HCPCS: G0463 ==

== ENCOUNTER 2018-06-25 09:15 | Outpatient (CLI) | payer OTHER, SELFPAY ==
[2018-06-25 10:00] VITALS: TEMP 36.7
== END 2018-06-25 10:00 | disposition home or self-care (01) ==
LOC: INF 09:23
PROVIDERS: Family Provider Nurse Practitioner Family; PCP Emergency Medicine; Visit Provider Surgery
DX: Z48.01 Encounter for change or removal of surgical wound dressing (principal); T63.301A Toxic effect of unspecified spider venom, accidental (unintentional), initial encounter; L03.311 Cellulitis of abdominal wall
CPT/HCPCS: G0463

== ENCOUNTER 2018-06-26 09:48 | Outpatient (CLI) | payer OTHER, SELFPAY | END 2018-06-26 10:45 | disposition home or self-care (01) | PROVIDERS: Family Provider Nurse Practitioner Family; PCP Emergency Medicine; Visit Provider Surgery | DX: T63.301A Toxic effect of unspecified spider venom, accidental (unintentional), initial encounter (principal); L03.311 Cellulitis of abdominal wall; Z48.01 Encounter for change or removal of surgical wound dressing | CPT/HCPCS: G0463 ==

== ENCOUNTER 2018-06-27 09:05 | Outpatient (CLI) | payer OTHER, SELFPAY ==
--- NOTE | 2018-06-27 18:28 | PC.NURSE ---
1110 - WOUND CLEANED WITH NS. APPLIE MARATHON LIQUID SKIN PROTECTANT ON SKIN AROUND WOUND THEN APPLIED EXODERM OVER THAT. PACKED WOUND WITH PART OF 2X2 GAUZE BARELY MOISTENED WITH NS. COVERED WITH DRY 2X2'S AND TAPED INTO PLACE ON TOP OF THE EXODERM, SO NO TAPE ON PT'S SKIN.
== END 2018-06-27 11:25 | disposition home or self-care (01) ==
PROVIDERS: Family Provider Nurse Practitioner Family; PCP Emergency Medicine; Visit Provider Surgery
DX: T63.301A Toxic effect of unspecified spider venom, accidental (unintentional), initial encounter (principal); L03.311 Cellulitis of abdominal wall; Z48.01 Encounter for change or removal of surgical wound dressing
CPT/HCPCS: G0463

== ENCOUNTER 2018-06-28 07:54 | Outpatient (CLI) | payer OTHER, SELFPAY ==
[2018-06-28 09:36] VITALS: BP 134/86; PULSE 85; RESP 16; O2SAT 99
== END 2018-06-28 09:10 | disposition home or self-care (01) ==
LOC: INF 07:55
PROVIDERS: Family Provider Nurse Practitioner Family; PCP Emergency Medicine; Visit Provider Surgery
DX: T63.301A Toxic effect of unspecified spider venom, accidental (unintentional), initial encounter (principal); L03.311 Cellulitis of abdominal wall; Z48.01 Encounter for change or removal of surgical wound dressing
CPT/HCPCS: G0463

== ENCOUNTER 2018-06-29 11:13 | Outpatient (CLI) | payer OTHER, SELFPAY ==
[2018-06-29 11:31] VITALS: BP 145/97; PULSE 86; RESP 20; TEMP 36.7; O2SAT 100
--- NOTE | 2018-06-29 12:47 | PC.NURSE ---
pt was premedicated per orders. pt dressing was changed at 1208. slight purulent appearing drainage was noted on the end of the gauze that was removed from the wound. wound bed was irrigated with saline, moist 4x4 was cut to fit and was packed into wound bed. was covered with dry 4x4 and taped. pt tolerated fairly
== END 2018-06-29 12:15 | disposition home or self-care (01) ==
PROVIDERS: Family Provider Nurse Practitioner Family; PCP Emergency Medicine; Visit Provider Surgery
DX: T63.301A Toxic effect of unspecified spider venom, accidental (unintentional), initial encounter (principal); L03.311 Cellulitis of abdominal wall; Z48.01 Encounter for change or removal of surgical wound dressing
CPT/HCPCS: G0463

== ENCOUNTER 2018-06-30 09:33 | Outpatient (CLI) | payer OTHER, SELFPAY ==
[2018-06-30 09:36] VITALS: RESP 18
== END 2018-06-30 10:20 | disposition home or self-care (01) ==
LOC: INF 09:33
PROVIDERS: Family Provider Nurse Practitioner Family; PCP Emergency Medicine; Visit Provider Surgery
DX: T63.301A Toxic effect of unspecified spider venom, accidental (unintentional), initial encounter (principal); L03.311 Cellulitis of abdominal wall; Z48.01 Encounter for change or removal of surgical wound dressing
CPT/HCPCS: G0463

== ENCOUNTER 2018-07-01 08:39 | Outpatient (CLI) | payer OTHER, SELFPAY | END 2018-07-01 09:40 | disposition home or self-care (01) | PROVIDERS: PCP Emergency Medicine; Visit Provider Surgery | DX: T63.301A Toxic effect of unspecified spider venom, accidental (unintentional), initial encounter (principal); L03.311 Cellulitis of abdominal wall; Z48.01 Encounter for change or removal of surgical wound dressing | CPT/HCPCS: G0463 ==

== ENCOUNTER 2018-07-02 08:20 | Outpatient (CLI) | payer OTHER, SELFPAY | END 2018-07-02 09:15 | disposition home or self-care (01) | LOC: INF 08:42 | PROVIDERS: Family Provider Nurse Practitioner Family; PCP Emergency Medicine; Visit Provider Surgery | DX: T63.301A Toxic effect of unspecified spider venom, accidental (unintentional), initial encounter (principal); L03.311 Cellulitis of abdominal wall; Z48.01 Encounter for change or removal of surgical wound dressing | CPT/HCPCS: G0463 ==

== ENCOUNTER 2018-07-03 10:18 | Outpatient (CLI) | payer OTHER, SELFPAY | END 2018-07-03 11:00 | disposition home or self-care (01) | LOC: INF 10:18 | PROVIDERS: Family Provider Nurse Practitioner Family; PCP Emergency Medicine; Visit Provider Surgery | DX: T63.301A Toxic effect of unspecified spider venom, accidental (unintentional), initial encounter (principal); L03.311 Cellulitis of abdominal wall; L03.90 Cellulitis, unspecified | CPT/HCPCS: G0463 ==

== ENCOUNTER 2018-07-04 09:10 | Outpatient (CLI) | payer OTHER, SELFPAY ==
[2018-07-04 09:22] VITALS: RESP 18
== END 2018-07-04 10:05 | disposition home or self-care (01) ==
LOC: INF 09:27
PROVIDERS: PCP Physician Assistant; Visit Provider Surgery
DX: T63.301A Toxic effect of unspecified spider venom, accidental (unintentional), initial encounter (principal); L03.311 Cellulitis of abdominal wall; L03.90 Cellulitis, unspecified; Z48.01 Encounter for change or removal of surgical wound dressing
CPT/HCPCS: G0463

== ENCOUNTER → 2018-07-05 08:55 | Outpatient (CLI) | payer OTHER, SELFPAY ==
[2018-07-05 09:17] VITALS: BMI 40.6
[2018-07-05 09:20] VITALS: BP 124/63; PULSE 67; RESP 18; TEMP 37.1; O2SAT 98
== END ==
PROVIDERS: Family Provider Nurse Practitioner Family; PCP Physician Assistant; Visit Provider Surgery
DX: T63.301A Toxic effect of unspecified spider venom, accidental (unintentional), initial encounter (principal); L03.311 Cellulitis of abdominal wall; L03.90 Cellulitis, unspecified; Z48.01 Encounter for change or removal of surgical wound dressing
CPT/HCPCS: G0463

== ENCOUNTER → 2018-07-06 15:55 | Outpatient (CLI) | payer OTHER, SELFPAY ==
[2018-07-06 16:10] VITALS: BMI 40.8
--- NOTE | 2018-07-06 16:19 | PC.NURSE ---
patient was given hydrocodone 10/325mg from the [facility], per Naheed Rodriguez, MSN, RN
[2018-07-06 16:25] VITALS: BP 141/85; PULSE 60; RESP 18; TEMP 36.7; O2SAT 99
== END ==
PROVIDERS: Family Provider Nurse Practitioner Family; PCP Physician Assistant; Visit Provider Surgery
DX: T63.301A Toxic effect of unspecified spider venom, accidental (unintentional), initial encounter (principal); L03.311 Cellulitis of abdominal wall; L03.90 Cellulitis, unspecified; Z48.01 Encounter for change or removal of surgical wound dressing
CPT/HCPCS: G0463

== ENCOUNTER 2018-07-07 08:35 | Outpatient (CLI) | payer OTHER, SELFPAY | END 2018-07-07 09:30 | disposition home or self-care (01) | PROVIDERS: Family Provider Nurse Practitioner Family; PCP Physician Assistant; Visit Provider Surgery | DX: T63.301A Toxic effect of unspecified spider venom, accidental (unintentional), initial encounter (principal); L03.311 Cellulitis of abdominal wall; Z48.01 Encounter for change or removal of surgical wound dressing | CPT/HCPCS: G0463 ==

== ENCOUNTER 2018-07-08 11:40 | Outpatient (CLI) | payer OTHER, SELFPAY ==
--- NOTE | 2018-07-08 15:21 | PC.NURSE ---
EXODERM DRESSING WAS APPLIED YESTERDAY AND WAS STILL INTACT; REMOVED THE 2X2 FROM THE HEALING WOUND; THE WOUND IS NOW JUST A SHALLOW AREA THAT WE LAY 2X2 IN; THERE WAS NO DRAINAGE AT ALL TODAY;
== END 2018-07-08 15:45 | disposition home or self-care (01) ==
PROVIDERS: Family Provider Nurse Practitioner Family; Visit Provider Surgery
DX: Z48.01 Encounter for change or removal of surgical wound dressing (principal); T63.301A Toxic effect of unspecified spider venom, accidental (unintentional), initial encounter; L03.311 Cellulitis of abdominal wall
CPT/HCPCS: G0463

== ENCOUNTER 2018-07-09 08:55 | Outpatient (CLI) | payer OTHER, SELFPAY ==
--- NOTE | 2018-07-09 10:46 | PC.NURSE ---
0915 - REMOVED DRESSING AND PACKING FROM WOUND. CLEANED AROUND AND IN WOUND WITH NS. WOUND BED RED AND MOIST. SKIN AROUND WOUND IS PINK AND SLIGHTLY EXCORIATED. APPLIED MARATHON LIQUID SKIN PROTECTANT TO SKIN AROUND WOUND THEN PLACED EXODERM AROUND WOUND WITH HOLE CUT IN THE MIDDLE SO WOUND WOULD BE EXPOSED. LAYED SMALL PIECE OF NS MOISTENED GAUZE IN WOUND AND COVERED WITH DRY GAUZE. TAPED DRESSING INTO PLACE ON EXODERM, WITHOUT USING ANY TAPE ON THE SKIN.
== END 2018-07-09 09:30 | disposition home or self-care (01) ==
PROVIDERS: PCP Emergency Medicine; Visit Provider Surgery
DX: Z48.01 Encounter for change or removal of surgical wound dressing (principal); T63.301A Toxic effect of unspecified spider venom, accidental (unintentional), initial encounter; L03.311 Cellulitis of abdominal wall
CPT/HCPCS: G0463

== ENCOUNTER 2018-07-10 09:20 | Outpatient (CLI) | payer OTHER, SELFPAY | END 2018-07-10 10:15 | disposition home or self-care (01) | LOC: INF 16:18 | PROVIDERS: Family Provider Nurse Practitioner Family; PCP Emergency Medicine; Visit Provider Surgery | DX: Z48.01 Encounter for change or removal of surgical wound dressing (principal); T63.301A Toxic effect of unspecified spider venom, accidental (unintentional), initial encounter; L03.311 Cellulitis of abdominal wall; A49.02 Methicillin resistant Staphylococcus aureus infection, unspecified site | CPT/HCPCS: G0463 ==

== ENCOUNTER 2018-07-11 09:05 | Outpatient (CLI) | payer OTHER, SELFPAY ==
--- NOTE | 2018-07-11 16:02 | PC.NURSE ---
Wound no longer open or draining. Skin around wound is red and excoriated from exoderm dressing. Exoderm removed and skin surrounding wound as well as wound cleaned with NS. Band aid placed over site. Instructed pt she would no longer need to come to infusion for wound care. Instructed to notify MD if wound starts draining or opens up again, has foul odor, or she develops a fever. Understanding verbalized.
== END 2018-07-11 09:35 | disposition home or self-care (01) ==
LOC: INF 15:43
PROVIDERS: Family Provider Nurse Practitioner Family; PCP Emergency Medicine; Visit Provider Surgery
DX: Z48.01 Encounter for change or removal of surgical wound dressing (principal); T63.301A Toxic effect of unspecified spider venom, accidental (unintentional), initial encounter; L03.311 Cellulitis of abdominal wall; A49.02 Methicillin resistant Staphylococcus aureus infection, unspecified site
CPT/HCPCS: G0463

== ENCOUNTER 2018-11-18 12:20 | Outpatient (CLI) | payer OTHER, SELFPAY ==
[2018-11-18 12:20] VITALS: BMI 40.8
--- NOTE | 2018-11-18 12:43 | XR_ITS ---
XR chest portable PICC plac HISTORY: ITS.REASON: PICC line placement ORDERING PHYSICIAN: JULIENNE Allen PATIENT AGE: 33 years COMPARISON: 09/20/2018 FINDINGS: Status post left upper extremity PICC line insertion. The tip is in good position in the region of the superior vena cava. Calcified granuloma is present in the right mid lung. The cardiomediastinal silhouette and pulmonary vascularity are within normal limits. The lungs are clear without infiltrates, suspicious nodules, or pleural effusions. No acute bony abnormalities. IMPRESSION: Satisfactory position of the PICC line FINDINGS called to Prashant on 11/18/2018 1:31 PM.
[2018-11-18 13:48] LABS: Basophils % 0.3 % (0.1-2.0); Eosinophils # 0.4 K/mm3 (0.0-0.4); Eosinophils % 3.9 % (0.1-12.0); Hematocrit 45.4 % (37.0-47.0); Hemoglobin 14.5 g/dL (12.2-16.2); Lymphocytes # 3.3 K/mm3 (0.7-4.5); Mean Corpuscular HGB Conc 31.8 g/dL (31.8-35.4); Mean Corpuscular Hemoglobin 29.2 pg (27.0-31.2); Mean Corpuscular Volume 91.7 fl (81-99); Mean Platelet Volume 9.2 fl (7.4-10.4); Monocytes # 0.3 K/mm3 (0.1-1.0); Monocytes % 3.1 % (1.7-9.3); Neutrophils # 5.8 K/mm3 (1.8-7.8); Neutrophils % 58.7 % (37.0-80.0); Platelet Count 157 K/mm3 (142-424); Red Blood Count 4.96 M/mm3 (4.20-5.40); Red Cell Distribution Width 15.6 % (11.5-17.5); White Blood Count 9.8 K/mm3 (4.8-10.8)
[2018-11-18 13:58] LABS: Alanine Aminotransferase 27 U/L (12-78); Albumin Level 3.6 gm/dL (3.4-5.0); Albumin/Globulin Ratio 0.9 (1.1-1.8); Alkaline Phosphatase 72 U/L (46-116); Anion Gap 13.8 mEq/L (5-15); Aspartate Amino Transferase 16 U/L (15-37); Bilirubin,Total 0.2 mg/dL (0.2-1.0); Blood Urea Nitrogen 11 mg/dL (7-18); Calcium 7.4 mg/dL (8.5-10.1); Carbon Dioxide 27 mmol/L (21.0-32.0); Chloride 101 mmol/L (98-107); Creatinine Clearance Estimated 161 mL/min (50-200); Creatinine,Serum 0.84 mg/dL (0.55-1.02); Estimated Glomerular Filt Rate 78 ml/min (>60); GFR (African American) 94 ML/MIN (>60); Globulin 4.1 gm/dl (1.3-3.2); Glucose 91 mg/dL (74-106); Potassium 4.8 mmoL/L (3.5-5.1); Sodium 137 mmol/L (136-145); Total Protein,Serum 7.7 gm/dL (6.4-8.2)
[2018-11-18 14:55] VITALS: BP 116/75; PULSE 68; RESP 20; TEMP 36.6; O2SAT 95
[2018-11-18 15:55] VITALS: BP 118/70; PULSE 68; RESP 20; TEMP 36.9; O2SAT 95
[2018-11-18 17:30] VITALS: BP 118/74; PULSE 68; RESP 20; TEMP 36.9
== END 2018-11-18 17:15 | disposition home or self-care (01) ==
LOC: INF 12:22
PROVIDERS: PCP Physician Assistant; Visit Provider Physician Assistant
DX: L02.01 Cutaneous abscess of face (principal)
CPT/HCPCS: 36569; 71045; 80053; 85025; 96365; 96366; C1751; J3370

== ENCOUNTER → 2018-11-19 08:54 | Outpatient (CLI) | payer OTHER, SELFPAY ==
[2018-11-19 08:50] VITALS: BP 131/86; PULSE 74; RESP 20; TEMP 36.7; O2SAT 99; BMI 40.8
[2018-11-19 09:30] VITALS: BP 107/66; PULSE 66; RESP 18; O2SAT 99
[2018-11-19 10:00] VITALS: BP 111/66; PULSE 60; RESP 18; O2SAT 99
[2018-11-19 11:00] VITALS: BP 112/68; PULSE 62; RESP 18; O2SAT 98
[2018-11-19 12:40] VITALS: BP 106/64; PULSE 68; RESP 18; O2SAT 99
== END ==
PROVIDERS: Visit Provider Physician Assistant
DX: L02.01 Cutaneous abscess of face (principal)
CPT/HCPCS: 96365; 96366; J3370

== ENCOUNTER 2018-11-20 13:30 | Outpatient (CLI) | payer OTHER, SELFPAY ==
[2018-11-20 13:52] VITALS: BMI 40.8
[2018-11-20 14:27] LABS: Vancomycin,Trough 7.5 mcg/ml (10.0-20.0)
--- NOTE | 2018-11-20 14:50 | HMH.PHACONS ---
- Pharmacy Consult Date: 11/20/18 Time: 14:50 Referring provider: SRINIVAS ANGELA APRN Reason for Consult:: VANCOMYCIN LEVEL Allergies and ADEs:: Allergies Allergy/AdvReac Type Severity Reaction Status Date / Time amoxicillin [From AUGMENTIN] Allergy Mild Verified 11/20/18 13:11 ceftriaxone [From Rocephin] Allergy Mild Verified 11/20/18 13:11 clavulanic acid Allergy Mild Verified 11/20/18 13:11 [From AUGMENTIN] tramadol [TRAMADOL] Allergy Mild Verified 11/20/18 13:11 Home Medications:: Home Medications Medication Instructions Recorded Confirmed Type hydrocodone 5 mg-acetaminophen 325 1 tab PO Q8H PRN #10 tab 11/18/18 11/20/18 Rx mg tablet vancomycin 1,000 mg intravenous IV BID each 11/20/18 11/20/18 History injection Height: 1.63 m Weight: 107.955 kg Laboratory Results:: Laboratory Results - last 24 hr 11/20/18 13:55: Vancomycin Trough 7.5 L Medical History: Reports:: Asthma, Migraine, MRSA Denies:: Cancer, Diabetes Mellitus Type 1, Diabetes Mellitus Type 2, Internal Pacemaker, Seizures Assessment and Plan - Assessment and plan all Dx Assessment and Plan for all problems:: PATIENT'S VANCOMYCIN TROUGH LEVEL WAS 7.5 MCG/ML TODAY. PATIENT'S TROUGH LEVEL WAS DRAWN LATER THAN EXPECTED DUE TO PATIENT NOT COMING IN THIS AM. PATIENT LIKELY NEEDS Q8H DOSING TO GET THE VANCOMYCIN TROUGH. RECOMMEND SWITCHING TO DAPTOMYCIN 500 MG Q24H IF POSSIBLE. DISCUSSING WITH SRINIVAS AND CARE MANAGEMENT. PATIENT WILL GET VANCOMYCIN 2000 MG TONIGHT AND IS SCHEDULED FOR SURGERY IN THE AM WITH DR. PAREKH. WILFRED YOUNGER, PHARMD
[2018-11-20 20:30] VITALS: BP 139/91; PULSE 78; RESP 16; TEMP 37.1
[2018-11-20 22:40] VITALS: BP 127/76; PULSE 82; RESP 16; TEMP 37.1; O2SAT 97
== END 2018-11-20 22:40 | disposition home or self-care (01) ==
PROVIDERS: Visit Provider Physician Assistant
DX: L02.01 Cutaneous abscess of face (principal); A49.02 Methicillin resistant Staphylococcus aureus infection, unspecified site
CPT/HCPCS: 80202; 96365; 96366; J3370

== ENCOUNTER 2018-11-26 09:45 | Outpatient (CLI) | payer OTHER, SELFPAY | END 2018-11-26 10:15 | disposition home or self-care (01) | LOC: INF 09:55 | PROVIDERS: Visit Provider Physician Assistant | DX: L02.01 Cutaneous abscess of face (principal) | CPT/HCPCS: G0463 ==

== ENCOUNTER → 2019-06-04 13:41 | Outpatient (CLI) | payer OTHER, SELFPAY ==
[2019-06-04 14:05] LABS: Anion Gap 10.6 mEq/L (5-15); Blood Urea Nitrogen 9 mg/dL (7-18); Calcium 8.8 mg/dL (8.5-10.1); Carbon Dioxide 26 mmol/L (21.0-32.0); Chloride 104 mmol/L (98-107); Creatinine,Serum 0.91 mg/dL (0.55-1.02); Estimated Glomerular Filt Rate 71 ml/min (>60); GFR (African American) 86 ML/MIN (>60); Glucose 159 mg/dL (74-106); Potassium 3.6 mmoL/L (3.5-5.1); Sodium 137 mmol/L (136-145)
== END ==
PROVIDERS: Visit Provider Physician Assistant
DX: R60.9 Edema, unspecified (principal)
CPT/HCPCS: 80048

== ENCOUNTER → 2019-07-13 13:48 | Outpatient (CLI) | payer OTHER, SELFPAY ==
--- NOTE | 2019-07-13 13:55 | XR_ITS ---
PROCEDURE: XR FOOT LT MIN 3V CLINICAL INDICATION: Left foot injury 07/10/19 COMPARISON: No exams were available for comparison FINDINGS: No fracture or dislocation. No lytic or blastic change. There is normal mineralization. The joint spaces are well-preserved. No significant degenerative/arthritic changes. No erosive changes evident. Other findings:None. IMPRESSION: No acute findings. Dictated by: Micah Desai 07/13/2019 14:39 Electronically signed by Micah Desai in [place] 07/13/2019 14:39
== END ==
PROVIDERS: PCP Emergency Medicine; Visit Provider Physician Assistant
DX: M79.672 Pain in left foot (principal)
CPT/HCPCS: 73630

== ENCOUNTER → 2019-12-07 15:51 | Outpatient (CLI) | payer OTHER, SELFPAY ==
--- NOTE | 2019-12-07 15:55 | XR_ITS ---
PROCEDURE: XR CHEST 2V CLINICAL HISTORY: cough COMPARISON: CXR2V XR chest 2V from 09/20/2018 [id number] XR chest portable PICC plac from 11/18/[address] angio chest from 11/19/2018 CXR2V XR chest 2V from 11/19/2018 FINDINGS: The cardiomediastinal silhouette and pulmonary vascularity are within normal limits. There are slight increased markings in the left infrahilar region which may be due to an area of patchy infiltrate. Calcified granuloma is present in the right midlung. There is a nodular opacity in the anterior clear space probably due to an overlying calcified granuloma No acute bony abnormalities. IMPRESSION: Patchy left perihilar infiltrate Dictated by: Silverio Crowe MD 12/07/2019 17:47 Electronically signed by Silverio Crowe MD in [facility] 12/07/2019 17:47
== END ==
PROVIDERS: PCP Physician Assistant; Visit Provider Physician Assistant
DX: R05 Cough (principal)
CPT/HCPCS: 71046

== ENCOUNTER → 2020-03-17 06:40 | Outpatient (CLI) | payer OTHER, SELFPAY ==
[2020-03-17 14:29] LABS: Basophils # 0.2 K/mm3 (0-0.2); Basophils % 1.6 % (0.1-2.0); Eosinophils # 0.3 K/mm3 (0.0-0.4); Eosinophils % 3.1 % (0.1-12.0); Hematocrit 50.1 % (37.0-47.0); Hemoglobin 16.4 g/dL (12.2-16.2); Lymphocytes # 3.9 K/mm3 (0.7-4.5); Lymphocytes % 37.2 % (10-50); Mean Corpuscular HGB Conc 32.7 g/dL (31.8-35.4); Mean Corpuscular Hemoglobin 33.2 pg (27.0-31.2); Mean Corpuscular Volume 101.6 fl (81-99); Mean Platelet Volume 11.7 fl (7.4-10.4); Monocytes # 0.4 K/mm3 (0.1-1.0); Monocytes % 3.4 % (1.7-9.3); Neutrophils # 5.7 K/mm3 (1.8-7.8); Neutrophils % 54.7 % (37.0-80.0); Platelet Count 170 K/mm3 (142-424); Red Blood Count 4.93 M/mm3 (4.20-5.40); Red Cell Distribution Width 13.2 % (11.5-17.5); White Blood Count 10.4 K/mm3 (4.8-10.8)
[2020-03-17 15:45] LABS: Alanine Aminotransferase 26 U/L (12-78); Albumin Level 4.7 g/dl (3.5-5.0); Albumin/Globulin Ratio 1.3 (1.1-1.8); Alkaline Phosphatase 70 U/L (38-126); Anion Gap 13.7 mEq/L (5-15); Aspartate Amino Transferase 31 U/L (14-36); Bilirubin,Total 0.5 mg/dl (0.2-1.3); Blood Urea Nitrogen 11 mg/dl (7-17); Calcium 9.6 mg/dl (8.4-10.2); Carbon Dioxide 25 mmol/L (22.0-30.0); Chloride 100 mmol/L (98-107); Chol/HDL Ratio 4.1 (1-3.5); Cholesterol 174 mg/dl (140-200); Estimated Glomerular Filt Rate 95 ml/min (>60); GFR (African American) 115 ML/MIN (>60); Globulin 3.6 g/dL (1.3-3.2); Glucose 146 mg/dl (74-100); HDL Cholesterol 42 mg/dl (40-60); Potassium 3.7 mmoL/L (3.5-5.1); Sodium 135 mmol/L (136-145); Total Protein,Serum 8.3 g/dl (6.3-8.2); Triglycerides 355 mg/dl (30-150); VLDL Cholesterol 71 mg/dL (0-40)
[2020-03-17 15:56] LABS: Direct LDL Cholesterol 113.41 mg/dL (100-129)
[2020-03-17 16:20] LABS: T4 (Thyroxine) 8.2 ug/dl (5.53-11.0)
[2020-03-17 17:46] LABS: Hemoglobin A1C 5.2 % (4.0-6.0)
[2020-03-17 20:27] LABS: Thyroid Stimulating Hormone 2.31 uIU/mL (0.465-4.68)
[2020-03-19 13:53] LABS: Vitamin D 25 Hydroxy 14.7 ng/mL (30.0-100.0)
== END ==
PROVIDERS: Visit Provider Physician Assistant
DX: I10 Essential (primary) hypertension (principal); R60.0 Localized edema; R53.83 Other fatigue; E55.9 Vitamin D deficiency, unspecified; F17.210 Nicotine dependence, cigarettes, uncomplicated
CPT/HCPCS: 80053; 80061; 82652; 83036; 84436; 84443; 85025

== ENCOUNTER → 2021-01-19 09:35 | Outpatient (CLI) | payer OTHER, SELFPAY ==
[2021-01-19 10:26] LABS: Basophils # 0.1 K/mm3 (0-0.2); Basophils % 0.7 % (0.1-2.0); Eosinophils # 0.4 K/mm3 (0.0-0.4); Eosinophils % 4.7 % (0.1-12.0); Hematocrit 44.3 % (37.0-47.0); Hemoglobin 14.9 g/dL (12.2-16.2); Lymphocytes # 2.6 K/mm3 (0.7-4.5); Lymphocytes % 30.8 % (10-50); Mean Corpuscular HGB Conc 33.7 g/dL (31.8-35.4); Mean Platelet Volume 8.9 fl (7.4-10.4); Monocytes # 0.2 K/mm3 (0.1-1.0); Neutrophils # 5.3 K/mm3 (1.8-7.8); Neutrophils % 61.8 % (37.0-80.0); Platelet Count 168 K/mm3 (142-424); Red Blood Count 4.67 M/mm3 (4.20-5.40); Red Cell Distribution Width 12.9 % (11.5-17.5); White Blood Count 8.5 K/mm3 (4.8-10.8)
[2021-01-19 10:58] LABS: Chloride 108 mmol/L (98-107); Potassium 4.1 mmoL/L (3.5-5.1); Sodium 140 mmol/L (136-145)
[2021-01-19 11:01] LABS: Alanine Aminotransferase 26 U/L (12-78); Albumin Level 4.2 g/dl (3.5-5.0); Albumin/Globulin Ratio 1.3 (1.1-1.8); Alkaline Phosphatase 68 U/L (38-126); Anion Gap 11.1 mEq/L (5-15); Aspartate Amino Transferase 31 U/L (14-36); Bilirubin,Total 0.5 mg/dl (0.2-1.3); Blood Urea Nitrogen 12 mg/dl (7-17); Calcium 9.2 mg/dl (8.4-10.2); Carbon Dioxide 25 mmol/L (22.0-30.0); Estimated Glomerular Filt Rate 140 ml/min (>60); GFR (African American) 169 ML/MIN (>60); Globulin 3.2 g/dL (1.3-3.2); Glucose 172 mg/dl (74-100); Total Protein,Serum 7.4 g/dl (6.3-8.2)
[2021-01-19 11:17] LABS: Erythrocyte Sedimentation Rate 36 mm/hr (0-20)
[2021-01-20 11:11] LABS: Hep A Ab, Total Positive (Negative); Hep B Core Ab, Total Negative (Negative); Hep Be Ag Negative (Negative); Hepatitis B Core Antibody IgM Negative (Negative); Hepatitis B Surface Antigen Negative (Negative); Hepatitis Be Antibody Negative (Negative)
[2021-01-20 12:24] LABS: HIV Screen 4th Generation wRfx Non Reactive (Non Reactive); Hep A Ab, IgM Negative (Negative); Hep B Surface Ab, Qual Non Reactive (.); Hepatitis C Antibody <0.1 s/co ratio (0.0-0.9)
== END ==
DX: F11.20 Opioid dependence, uncomplicated (principal); R94.5 Abnormal results of liver function studies; R53.83 Other fatigue; Z79.899 Other long term (current) drug therapy; Z11.4 Encounter for screening for human immunodeficiency virus [HIV]
CPT/HCPCS: 36415; 80053; 85025; 85651; 86703; 86704; 86706; 86707; 86708; 87340; 87350; 87380; G0432

== ENCOUNTER → 2021-04-27 15:06 | Outpatient (CLI) | payer OTHER, SELFPAY ==
--- NOTE | 2021-04-27 15:06 | CA_ITS ---
APPROVED REPORT EXAM: Comprehensive 2D, Doppler, and color-flow Echocardiogram Driller And Reamer: ABRIL Purdy, RVS Ht: 5 ft 4 in Wt: 277lbs BSA: 2.25 BP: 124/68 mmHg Indications: edema, smoker, obesity Echo Enhancing Agent Comments: Extremely limited acouistic windows due to large body habitus and lung impedence. 2D Dimensions LVOT 1.84 cm (M/F) 1.5-2.5 LA Volume 34.70 mL LA Volume Index [id number] mL/m2 (M/F) 16-34 M-Mode Dimensions RVDd 1.57 cm (0.9-2.6) LA Diam 3.25 cm (1.9-4.0) LVDd 5.43 cm (3.5-5.7) Ao Diam 2.36 cm (2.0-3.7) LVDs 4.02 cm (3.5-5.7) IVSd 1.00 cm (0.6-1.1) PWd 1.09 cm (0.6-1.1) EF (Teich) 50.50% EPSs 1.17 cm FS 26.00% EDV (Teich) 143.10 mL TAPSE 2.69 (<1.7) ESV (Teich) 70.80 mL LV Diastology E Decel Time 237.00 (160-240 msec) E/A Ratio 1.24 MED E' 10.90 (< 7 cm/sec) MED A' 9.70 cm/s E'/MED E' Ratio 8.16 (>14) LAT E' 14.60 (<10 cm/sec) LAT A' 9.30 cm/s E/LAT E' Ratio 6.09 (>14) Aortic Valve LVOT Max 116.00 (70-110 cm/s) LVOT VTI 23.61 cm AoV Peak Amarjit. 172.00 (50-130 cm/s) AO Peak GR. 11.80 mmHg AO Mean GR. 6.40 (<5 mmHg) AO VTI 34.14 (18-25 cm) SHARI (VTI) 1.84 (2.5-4.5 cm2) Mitral Valve MV A Velocity 72.00 (40-130 cm/s) E/A Ratio 1.24 MV Decel. Time 237.00 (160-240 ms) Tricuspid Valve TR P. Velocity 182.00 cm/s RAP Estimate 10.00 mmHg RVSP 23.20 mmHg Left Ventricle Technically difficult study because of the patient factors and poor acoustic windows. Left atrium is normal size, left ventricle is normal size, visually estimated ejection fraction 55% with no regional wall motion abnormality, diastolic parameters are within normal range. Right Ventricle Right atrium and right ventricle are normal size and contractility. Aortic Valve Aortic valve is grossly normal, there is no aortic stenosis or aortic insufficiency. Mitral Valve Mitral valve grossly normal, there is trace mitral regurgitation. Tricuspid Valve Tricuspid valve grossly normal, there is trace tricuspid regurgitation, tricuspid regurgitation jet velocity is inadequate for calculation of the right ventricular systolic pressure. Pulmonic Valve Pulmonic valve is poorly visualized. Great Vessels Aortic root is normal size. Pericardium No significant pericardial effusion noted. Conclusion 1. Normal left ventricular size, preserved left ventricular systolic function, visually estimated ejection fraction 55% with no regional wall motion abnormality, diastolic parameters are within normal range. 2. Trace mitral and tricuspid regurgitation. 3. No significant pericardial effusion noted. Electronically signed by : Gallito Sanchez, 04/27/2021 16:14:27
== END ==
PROVIDERS: PCP Physician Assistant; Visit Provider Nurse Practitioner Family
DX: R60.0 Localized edema (principal)
CPT/HCPCS: 93306

== ENCOUNTER 2021-05-04 14:50 | Outpatient (RCR) | payer OTHER, SELFPAY ==
--- NOTE | 2021-05-04 15:24 | [facility].PTOPWND ---
Rehab Outpt Wound Evaluation Rehab OP Wound Evaluation Start: 05/04/21 15:18 Freq: Status: Active Protocol: Document 05/04/21 15:19 [facility] (Rec: 05/04/21 15:24 PHORNE [id number]) Electronically Signed By Eliud Christianson, PT 05/04/21 15:19 Subjective/History History History Pt is 35 yowf who presents with c/o B LE edema x ~ 1 mo this episode with itching and blisters. She reports many similar episodes that come and go over the past 4-5 yrs. She reports the blisters generally pop open and then steadily heal from that point. She reports PMH of CCY, 3 C- sections, and surgery on a spider bite on my stomach. Subjective Subjective Pt with no c/o pain at this time, but at worst is 4/10. Lymphedema Eval Classification of Lymphedema Secondary Lymphedema Yes Stemmer's sign Stemmer's Sign no Stage of Lymphedema Lymphedema stages Stage II (Pitting edema, increased fibrosis w/ decreased pitting) Skin Changes Dry Skin Yes Skin Folds Yes Hyperkeratosis Yes Redness Yes Blisters Yes Wounds Yes Brittle Uneven Nails Yes Other Changes Yes Pain Scale Pain Scale (0-10) 4 Affected Extremities Areas Affected by Lymphedema/Edema Right Lower Extremity,Left Lower Extremity Manual Lymphatic Drainage Treatment Area MLD Treatment Area Right Lower Extremity,Left Lower Extremity Wound Problems/Impairments Impairments Problems/Impairmments Palpation Tenderness,Increased Edema,Lymphedema Present, Wound Care Needs,Subjective C/ O Pain,Impaired Self Care/Self Management Prognosis Rehab Potential Good Clinical Impression Consistent with Diagnosis Yes Short Term Goals Number of Weeks 4 Decrease Edema Yes Decrease Subjective C/O Pain Yes: 2/10 Patient to Understand Lymphedema Yes Treatment and Exercises Md Urologist Goals Number of Weeks 8 Decrease Lymphedema Yes Decrease Subjective C/O Pain Yes: 0/10 Patient to be Ind w/ HEP Yes Patien
== END 2021-05-04 15:27 | disposition home or self-care (01) ==
LOC: PT 14:50
PROVIDERS: PCP Physician Assistant; Visit Provider Nurse Practitioner Family
DX: R60.0 Localized edema (principal)
CPT/HCPCS: 97162

== ENCOUNTER → 2021-08-07 10:37 | Outpatient (CLI) | payer OTHER, SELFPAY ==
[2021-08-07 11:13] LABS: Basophils # 0.1 K/mm3 (0-0.2); Basophils % 1.1 % (0.1-2.0); Eosinophils # 0.4 K/mm3 (0.0-0.4); Eosinophils % 5.1 % (0.1-12.0); Hematocrit 47.4 % (37.0-47.0); Hemoglobin 15.6 g/dL (12.2-16.2); Lymphocytes % 34.8 % (10-50); Mean Corpuscular HGB Conc 32.9 g/dL (31.8-35.4); Mean Corpuscular Hemoglobin 32.3 pg (27.0-31.2); Mean Corpuscular Volume 98.2 fl (81-99); Mean Platelet Volume 9.6 fl (7.4-10.4); Monocytes # 0.2 K/mm3 (0.1-1.0); Monocytes % 2.8 % (1.7-9.3); Neutrophils # 4.9 K/mm3 (1.8-7.8); Neutrophils % 56.2 % (37.0-80.0); Platelet Count 205 K/mm3 (142-424); Red Blood Count 4.83 M/mm3 (4.20-5.40); Red Cell Distribution Width 13.3 % (11.5-17.5); White Blood Count 8.7 K/mm3 (4.8-10.8)
[2021-08-07 11:58] LABS: Chloride 106 mmol/L (98-107); Potassium 3.7 mmoL/L (3.5-5.1); Sodium 141 mmol/L (136-145)
[2021-08-07 12:00] LABS: Blood Urea Nitrogen 8 mg/dl (7-17); Estimated Glomerular Filt Rate 113 ml/min (>60); GFR (African American) 137 ML/MIN (>60)
[2021-08-07 12:01] LABS: Alanine Aminotransferase 33 U/L (12-78); Albumin Level 4.1 g/dl (3.5-5.0); Alkaline Phosphatase 70 U/L (38-126); Anion Gap 14.7 mEq/L (5-15); Aspartate Amino Transferase 37 U/L (14-36); Bilirubin,Direct 0.4 mg/dl (0.0-0.4); Bilirubin,Indirect 0.1 mg/dL (0.0-0.9); Bilirubin,Total 0.5 mg/dl (0.2-1.3); Calcium 9.2 mg/dl (8.4-10.2); Carbon Dioxide 24 mmol/L (22.0-30.0); Glucose 185 mg/dl (74-100); Total Protein,Serum 7.3 g/dl (6.3-8.2)
[2021-08-08 12:27] LABS: HIV Screen 4th Generation wRfx Non Reactive (Non Reactive); Hep A Ab, IgM Negative (Negative); Hep A Ab, Total Positive (Negative); Hepatitis B Core Antibody IgM Negative (Negative); Hepatitis B Surf Ab Quant 6.5 mIU/mL (Immunity>9.9); Hepatitis B Surface Antigen Negative (Negative); Rapid Plasma Reagin Ab Titer Non Reactive (NonRea<1:1)
[2021-08-13 10:17] LABS: QuantiFERON-TB Gold Plus Negative (Negative)
== END ==
PROVIDERS: Visit Provider Nurse Practitioner Family
DX: F11.20 Opioid dependence, uncomplicated (principal)
CPT/HCPCS: 36415; 80048; 80076; 85025; 86480; 86592; 86703; 86704; 86706; 86708; 87340; G0432

== ENCOUNTER 2024-02-19 10:43 | Outpatient (CLI) | payer BC, OTHER, SELFPAY ==
[2024-02-19 11:31] LABS: Basophils # 0.1 K/mm3 (0-0.2); Basophils % 0.9 % (0.1-2.0); Eosinophils # 0.4 K/mm3 (0.0-0.4); Eosinophils % 4.1 % (0.1-12.0); Hematocrit 43.6 % (37.0-47.0); Hemoglobin 14.6 g/dL (12.2-16.2); Lymphocytes # 3.3 K/mm3 (0.7-4.5); Lymphocytes % 32.3 % (10-50); Mean Corpuscular HGB Conc 33.5 g/dL (31.8-35.4); Mean Corpuscular Hemoglobin 32.7 pg (27.0-31.2); Mean Corpuscular Volume 97.7 fl (81-99); Mean Platelet Volume 9.3 fl (7.4-10.4); Monocytes # 0.3 K/mm3 (0.1-1.0); Neutrophils # 6.1 K/mm3 (1.8-7.8); Neutrophils % 59.7 % (37.0-80.0); Platelet Count 159 K/mm3 (142-424); Red Blood Count 4.46 M/mm3 (4.20-5.40); Red Cell Distribution Width 13.6 % (11.5-17.5); White Blood Count 10.2 K/mm3 (4.8-10.8)
[2024-02-19 11:53] LABS: Alanine Aminotransferase 46 U/L (12-78); Albumin Level 4.3 g/dl (3.5-5.0); Albumin/Globulin Ratio 1.4 (1.1-1.8); Alkaline Phosphatase 62 U/L (38-126); Anion Gap 12.1 mEq/L (5-15); Aspartate Amino Transferase 48 U/L (14-36); Bilirubin,Total 0.4 mg/dl (0.2-1.3); Blood Urea Nitrogen 12 mg/dl (7-17); Calcium 9.7 mg/dl (8.4-10.2); Carbon Dioxide 27 mmol/L (22.0-30.0); Chloride 103 mmol/L (98-107); Estimated Glomerular Filt Rate 70 ml/min (>60); GFR (African American) 84 ML/MIN (>60); Glucose 114 mg/dl (74-100); Potassium 4.1 mmoL/L (3.5-5.1); Sodium 138 mmol/L (136-145); Total Protein,Serum 7.3 g/dl (6.3-8.2)
[2024-02-20 08:19] LABS: HIV Screen 4th Generation wRfx Non Reactive (Non Reactive); Hep B Core Ab, Total Negative (Negative); Hep B Surface Ab, Qual Non Reactive (.)
[2024-02-20 13:09] LABS: Rapid Plasma Reagin Ab Titer Non Reactive titer (NonRea<1:1)
[2024-02-21 22:30] LABS: QuantiFERON-TB Gold Plus Negative (Negative)
[2024-02-29 10:43] LABS: Hepatitis B Surface Antigen Negative
== END 2024-02-19 23:59 | disposition home or self-care (01) ==
PROVIDERS: Visit Provider Registered Nurse
DX: F11.20 Opioid dependence, uncomplicated (principal)
CPT/HCPCS: 36415; 80053; 85025; 86480; 86593; 86703; 86704; 86706; 87340; 87522; G0432